=== PATIENT | male | born 1995 | race African-American/Black ===

== ENCOUNTER 2020-12-30 20:10 | Emergency (ER) | payer OTHER ==
[2020-12-30 20:26] VITALS: BP 171/117; PULSE 80; TEMP 98.8; BMI 26.6
[2020-12-30] MEDS ORDERED: ALBUTEROL SO4 0.083% IH SOL 2.5 MG/3 ML VIAL.NEB. NEB ONE ×2 (21:14→21:26)
[2020-12-30] MEDS ORDERED: amLODIPine BESYLATE 5 MG TABLET (FP) PO ONE (21:15)
[2020-12-30] MEDS ORDERED: amLODIPine BESYLATE 5 MG TABLET (FP) ONE (21:17)
[2020-12-30] MEDS ORDERED: ALBUTEROL SO4 0.083% IH SOL 2.5 MG/3 ML VIAL.NEB. NEB PRN (21:35)
== END 2020-12-30 22:13 | disposition home or self-care (01) ==
LOC: FER 20:10
PROC: 3E0F7GC Introduction of Other Therapeutic Substance into Respiratory Tract, Via Natural or Artificial Opening (ICD-10-PCS; principal; 2020-12-30)
DX: J45.21 Mild intermittent asthma with (acute) exacerbation (principal); I10 Essential (primary) hypertension
CPT/HCPCS: 71045-TC-FY; 99284-25; C9803; U0003; U0005

== ENCOUNTER 2021-01-14 17:44 | Emergency (ER) | payer OTHER ==
[2021-01-14 17:58] VITALS: BP 154/113; PULSE 120; TEMP 98; BMI 26.6
[2021-01-14] MEDS ORDERED: MECLIZINE HCL 25 MG TABLET (FP) PO ONE (18:09)
[2021-01-14] MEDS ORDERED: ACETAMINOPHEN 500 MG TABLET (FP) PO ONE (18:10)
[2021-01-14] MEDS ORDERED: ACETAMINOPHEN 325 MG TABLET (FP) ONE (18:13)
[2021-01-14] MEDS ORDERED: MECLIZINE HCL 25 MG TABLET (FP) ONE (18:13)
== END 2021-01-14 19:10 | disposition home or self-care (01) ==
LOC: FER 17:44
DX: R42 Dizziness and giddiness (principal); I10 Essential (primary) hypertension
CPT/HCPCS: 99283-25